=== PATIENT | female | born 1965 | race Hispanic/Latino ===

== ENCOUNTER 2020-02-05 17:15 | Emergency (ER) | payer BC, OTHER ==
[2020-02-05 17:58] LABS: #Lymphocytes 1.5 thou/uL (1.20-3.40); #Monocytes 0.8 thou/uL (0.11-0.59); #Neutrophils 10.2 thou/uL (1.40-6.50); %Basophils 0.3 % (0.0-1.0); %Eosinophils 0.2 % (0.0-10.0); %Lymphocytes 11.8 % (21.0-51.0); %Monocytes 6.7 % (0.0-10.0); Hemoglobin 11.3 g/dL (12.0-16.0); Mean Corpuscular Hemoglobin 28.5 pg (27.0-31.0); Mean Corpuscular Volume 86.4 fL (78.0-98.0); Mean Platelet Volume 7.2 fL (7.4-10.4); Platelet Count 268 thou/uL (130-400); RBC Distribution Width 12.7 % (11.5-14.5); Red Blood Cell (RBC) Count 3.96 mill/uL (4.20-5.40); White Blood Cell (WBC) Count 12.6 thou/uL (4.8-10.8)
[2020-02-05 18:28] LABS: ALT (SGPT) 14 U/L (8-55); AST (SGOT) 17 U/L (5-34); Albumin 3.9 g/dL (3.5-5.0); Alkaline Phosphatase 79 U/L (40-110); Anion Gap 15 mmol/L (10-20); BUN (Urea Nitrogen) 12 mg/dL (9.8-20.1); Bilirubin, Total 0.2 mg/dL (0.2-1.2); Calc. Creatinine Clearance 0 mL/min (70-130); Calcium 8.9 mg/dL (7.8-10.44); Carbon Dioxide 20 mmol/L (22-29); Chloride 103 mmol/L (98-107); Estimated GFR-MDRD 60; Globulin 3.6 g/dL (2.4-3.5); Glucose 129 mg/dL (70-105); Potassium 3.6 mmol/L (3.5-5.1); Protein, Total 7.5 g/dL (6.0-8.3); Sodium 134 mmol/L (136-145)
[2020-02-05] MEDS ORDERED: cefTRIAXone\\ROCEPHIN 1 GM VIAL ONE (18:41)
[2020-02-05 18:50] LABS: Bilirubin Negative (Negative); Blood, Urine 2+ (Negative); Clarity Clear (Clear); Glucose, Urine (Dipstick) Normal (Negative); Ketone, Urine Negative (Negative); Leukocyte 500 Leu/uL (Negative); Nitrite Negative (Negative); Protein, Urine (Dipstick) 50 mg/dL (Neg-Trace); Renal Epithelial 0-3 HPF (None Seen); Specific Gravity, Urine 1.011 (1.002-1.036); Squamous Epithelial 0-3 HPF (0-3); Transitional Epithelial 0-3 HPF (None Seen); Urobilinogen Normal mg/dL (Less than 2); pH, Urine 6.5 (5.0-9.0)
[2020-02-05 18:59] LABS: Bacteria/HPF None Seen HPF (None Seen)
[2020-02-05] MEDS ORDERED: Acetaminophen 500 MG TAB ONE (19:24)
== END 2020-02-05 20:21 | disposition home or self-care (01) ==
LOC: ERS 17:15
DX: N10 Acute pyelonephritis (principal); E78.5 Hyperlipidemia, unspecified; Z79.899 Other long term (current) drug therapy
CPT/HCPCS: 36415; 80053; 81003; 81015; 83605; 85025; 87040; 87086; 96361; 96365; J0696

== ENCOUNTER 2021-10-06 12:42 | Outpatient (CLI) | payer BC ==
[~2021-10-06 12:42] MED LIST: Iopamidol-370 76% 500 ML 1 ML ONE
== END 2021-10-06 12:43 | disposition home or self-care (01) ==
LOC: BICCT 12:42
PROVIDERS: ATTEND Internal Medicine
DX: K86.2 Cyst of pancreas (principal); K21.9 Gastro-esophageal reflux disease without esophagitis; K86.89 Other specified diseases of pancreas
CPT/HCPCS: 74170